=== PATIENT | male | born 1995 | race Caucasian/White ===

== ENCOUNTER 2021-03-07 23:54 | Emergency (ER) | payer BC, SELFPAY ==
[2021-03-08] VITALS: BP 126/78; PULSE 95; RESP 18; O2SAT 96; BMI 22.8
--- NOTE | 2021-03-08 00:40 | [facility].EDWNDL ---
ED Disposition Clinical Impression: Laceration of forearm Qualifiers: Encounter type: initial encounter Laterality: right Qualified Code(s): S51.811A - Laceration without foreign body of right forearm, initial encounter Disposition: Home, Self-Care Condition on Discharge: Good Instructions: DI for Laceration Repair -- Simple Additional Instructions: sutures out 10 days and recheck if needed Referrals: Filemon Gutierrez II, MD [Primary Care Provider] - - Critical Care Critical Care Time: No Attestation: On 03/07/21, the high probability of a clinically significant, sudden or life threatening deterioration of the following system(s) required my full and direct attention, intervention and personal management. The time I documented below is in addition to time spent performing reported procedures but includes the following listed in this critical care notation. Medical Decision Making - Medical Records Medical records reviewed: Yes: I reviewed the patient's medical records. - Micah Inquiry Pt receiving controlled substance: No Vital Signs: 03/08/21 00:00 Pulse Rate [Right Brachial] 95 H Respiratory Rate 18 Blood Pressure [Right Arm] 126/78 Blood Pressure Mean [Right Arm] 94 Blood Pressure Source [Right Arm] Automatic Cuff Blood Pressure Position [Right Arm] Sitting 02 Sat by Pulse Oximetry 96 Oxygen Delivery Method Room Air Wound/Laceration HPI - General Chief Complaint: Extremity Injury, Upper Stated Complaint: AO09/13@2300 r forearm lac Time Seen by Provider: 03/08/21 00:15 Mode of Arrival: Ambulatory Source of Information: Patient, Medical Record Limitations: No Limitations Description of Symptoms (Recalled from ER Triage Doc. by RN): accidently laceration to the left forearm with a fishing knife - History of Present Illness HPI narrative: lac rt forearm with knife tonight Onset (ago): hour(s) Extremity Location: Left: forearm Place: outdoors Patient tetanus UTD: Yes Context: sharp object use Associated symptoms: none - Related Data Allergies Allergy/AdvReac Type Severity Reaction Status Date / Time amoxicillin Allergy Verified 03/08/21 00:04 Penicillins Allergy Verified 03/08/21 00:04 [facility] History - Hepatitis A Screen Drug use history?: No High risk sexual behaviors?: No History of sexually transmitted infection?: No Currently employed?: No Childcare worker?: No Do you have indoor plumbing?: Yes Do you have electricity?: Yes Attestation statement:: This patient has been screened for Hepatitis A risk factors. I have reviewed the patient's past medical history: Yes - Social History Smoking Status: Current every day smoker Tobacco Type: cigarettes, smokeless tobacco # Packs/Day (cigarettes): 1 Alcohol Intake: current Occupational Status: other ROS Obtained: Yes All systems reviewed & no additional complaints - Constitutional Constitutional: Denies fever(s) - Eyes Eyes: Denies change in vision - ENT Ears, Nose, Mouth, and Throat: Denies sore throat - Cardiovascular Cardiovascular: Denies chest pain - Respiratory Respiratory: Denies shortness of breath - Gastrointestinal Gastrointestingal: Denies: abdominal pain - Genitourinary Male Genitourinary: Denies hematuria - Musculoskeletal Musculoskeletal: Denies joint pain - Integumentary/Breasts Skin/Breast: Reports as per HPI, Reports other (laceration rt forearm ) - Neurologic Neurologic: Denies seizure-like activity Physical Exam - General General appearance: alert - Head Head exam: normocephalic - Eye Eye exam: Present: PERRL, EOMI - ENT ENT exam: Present: mucous membranes moist - Neck Neck exam: Present: trachea midline - Respiratory Respiratory exam: Absent: respiratory distress - Cardiovascular Cardiovascular exam: Present: regular rate - Abdominal Exam Abdominal exam: Present: soft - Extremities Exam Extremities exam: Present: full ROM - Neurological
[2021-03-08 00:57] VITALS: BP 125/72; PULSE 88; RESP 16; TEMP 36.7; O2SAT 99
== END 2021-03-08 00:59 | disposition home or self-care (01) ==
PROVIDERS: Emergency Provider Emergency Medicine; PCP Internal Medicine Infectious Disease
DX: S51.811A Laceration without foreign body of right forearm, initial encounter (principal); W26.0XXA Contact with knife, initial encounter; F17.210 Nicotine dependence, cigarettes, uncomplicated
CPT/HCPCS: 12001; 99282